=== PATIENT | male | born 1955 | race Caucasian/White ===

== ENCOUNTER 2021-08-11 06:47 | Inpatient (IN) | payer MEDICARE, MEDICAID ==
[~2021-08-11] VITALS: Ht 188 cm; Wt 105.2 kg
[~2021-08-11 06:47] MED LIST: ASPI-1444 PO; HYDR25TA2 PO; OMEP20 PO; VALP250C48 PO
[2021-08-11 07:41] LABS: GLUCOSE,POINT OF CARE 147 MG/DL (70-110)
[2021-08-11 08:18] LABS: BASOPHILS % (AUTO) 0.7 % (0.0-2.0); EOSINOPHILS % (AUTO) 2.9 % (1.0-6.0); HEMATOCRIT 31.9 % (41-53); LYMPHOCYTES # (AUTO) 1.1 K/uL (1.0-4.8); LYMPHOCYTES % (AUTO) 22.5 % (22.0-44.0); MEAN CORPUSCULAR HEMOGLOBIN 31.4 pg (26.0-34.0); MEAN CORPUSCULAR HGB CONC 34.6 G/dL (31.0-37.0); MEAN CORPUSCULAR VOLUME 91 fL (80-100); MONOCYTES # (AUTO) 0.7 K/uL (0.1-1.0); MONOCYTES % (AUTO) 13.3 % (2.0-9.0); NEUTROPHILS # (AUTO) 3.1 K/uL (1.8-7.7); NEUTROPHILS % (AUTO) 60.6 % (40.0-70.0); PLATELET COUNT (AUTO) 206 K/uL (150-450); RED BLOOD CELL COUNT(AUTO) 3.52 MIL/uL (4.50-5.90); RED CELL DISTRIBUTION WIDTH 15.1 % (11.5-14.5)
[2021-08-11 08:34] LABS: SALICYLATE 0.7 mg/dL (2.8-20.0)
[2021-08-11 08:37] LABS: COVID AG,FIA SOURCE NASOPHARYNGEAL
[2021-08-11 08:39] LABS: ALANINE AMINOTRANSFERASE 71 U/L (12-78); ALBUMIN 3.4 g/dL (3.4-5.0); ALKALINE PHOSPHATASE 52 U/L (46-116); ANION GAP 7 mmol/L (8-16); ASPARTATE AMINOTRANSFERASE 69 U/L (15-37); BILIRUBIN,TOTAL 2.1 mg/dL (0.1-1.0); CALCIUM, TOTAL 8.6 mg/dL (8.8-10.5); CARBON DIOXIDE 29 mmol/L (22-29); CHLORIDE 104 mmol/L (98-107); CREATININE 0.95 mg/dL (0.60-1.30); GLOMERULAR FILTR. RATE CALC > 60 mL/min (>60); GLUCOSE,RANDOM 152 mg/dL (70-110); SODIUM SERUM 140 mmol/L (136-145); TOTAL PROTEIN, SERUM 6.4 g/dL (6.4-8.2); UREA NITROGEN, BLOOD 23 mg/dL (7-18)
[2021-08-11 08:40] LABS: ACETAMINOPHEN < 2 mcg/mL (10-30)
[2021-08-11 09:06] LABS: APPEARANCE,URINE CLEAR (CLEAR); BILIRUBIN,URINE NEGATIVE (NEGATIVE); GLUCOSE, URINE (UA) NEGATIVE (NEGATIVE); KETONES,URINE NEGATIVE (NEGATIVE); LEUKOCYTE ESTERASE ,URINE NEGATIVE (NEGATIVE); NITRATE,URINE NEGATIVE (NEGATIVE); OCCULT BLOOD,URINE NEGATIVE (NEGATIVE); PH,URINE 5.5 (5.0-8.0); PROTEIN,URINE NEGATIVE (NEGATIVE); SPECIFIC GRAVITIY, URINE 1.025 (1.003-1.030); UROBILINOGEN,URINE <=1.0 mg/dL (<=1.0)
[2021-08-11 09:13] LABS: AMPHET/METH SCREEN,URINE POSITIVE (NEGATIVE); BARBITURATE SCREEN, URINE NEGATIVE (NEGATIVE); BENZODIAZEPINES SCREEN,URINE NEGATIVE (NEGATIVE); CANNABINOID SCREEN,URINE POSITIVE (NEGATIVE); COCAINE SCREEN,URINE NEGATIVE (NEGATIVE); METHADONE SCREEN, URINE NEGATIVE (NEGATIVE); OPIATE SCREEN,URINE NEGATIVE (NEGATIVE); PHENCYCLIDINE SCREEN,URINE NEGATIVE (NEGATIVE)
[2021-08-11 09:58] LABS: BACTERIA,URINE None Seen /HPF (None Seen); RBC,URINE None Seen /HPF (0-2); WBC,URINE None Seen /HPF (0-5)
[2021-08-11] MEDS ORDERED: ZOLPIDEM TARTRATE 10 MG TABLET PO PRN (12:00)
[2021-08-11] MEDS ORDERED: LORazepam 2 MG TABLET PO PRN (12:00)
[2021-08-11] MEDS ORDERED: HALOPERIDOL 5 MG TABLET PO PRN (12:00)
[2021-08-11] MEDS ORDERED: POTASSIUM CHLORIDE 20 MEQ ER TABLET PO ONE (17:15)
[2021-08-11 17:45] VITALS: BP 128/62
[2021-08-11] MEDS ORDERED: IBUPROFEN 400 MG TABLET PO PRN (21:00)
[2021-08-11] MEDS ORDERED: NICOTINE 14 MG/24 HOUR PATCH TD PRN (21:00)
[2021-08-12 08:00] VITALS: BP 107/69
[2021-08-12] MEDS: OLANZapine 10 MG TABLET PO SCH ×2 (12:19→21:01)
[2021-08-12] MEDS: DIVALPROEX SODIUM 500 MG DR TABLET PO SCH ×2 (12:19→21:01)
[2021-08-12] MEDS ORDERED: GuaiFENesin/D-METHORPHAN [SUGAR-FREE] 200-20MG/10 ML SYRUP UDCUP PO PRN (13:15)
[2021-08-12] MEDS ORDERED: CloNIDine HCL 0.1 MG TABLET PO PRN (13:15)
[2021-08-12] MEDS ORDERED: MAG HYDROX/AL HYDROX/SIMETH ES 30 ML SUSPENSION UDCUP PO PRN (13:15)
[2021-08-12] MEDS ORDERED: MAGNESIUM HYDROXIDE SUSPENSION 30 ML UDCUP PO PRN (13:15)
[2021-08-12] MEDS ORDERED: LOPERAMIDE HCL 2 MG CAPSULE PO PRN (13:15)
[2021-08-12] MEDS ORDERED: IBUPROFEN 400 MG TABLET PO PRN (13:15)
[2021-08-12] MEDS ORDERED: ALBUTEROL SULFATE HFA 90 MCG/PUFF 8 GM INHALER IH PRN (13:15)
[2021-08-12] MEDS ORDERED: PETROLATUM,WHITE 28 GM JELLY TP PRN (13:15)
[2021-08-12] MEDS ORDERED: DOCUSATE SODIUM 100 MG CAPSULE PO PRN (13:15)
[2021-08-12] MEDS ORDERED: NICOTINE 14 MG/24 HOUR PATCH TD PRN (13:15)
[2021-08-12] MEDS ORDERED: ACETAMINOPHEN 325 MG TABLET PO PRN (13:15)
[2021-08-12] MEDS ORDERED: ONDANSETRON HCL 4 MG TABLET PO PRN (13:15)
[2021-08-12] MEDS ORDERED: DEXTROSE 50%-WATER 25 GM/50 ML SYRINGE IVP PRN (13:15)
[2021-08-12 16:00] VITALS: BP 113/77
[2021-08-12] MEDS: INSULIN LISPRO 100 UNITS/ML SQ PRN (17:02)
[2021-08-12] MEDS: MetFORMIN HCL 500 MG TABLET PO SCH (17:05)
[2021-08-12 17:16] LABS: GLUCOMETER DEV NAME(LOC) 3EX.; GLUCOSE,POINT OF CARE 169 MG/DL (70-110)
[2021-08-12 21:21] LABS: GLUCOMETER DEV NAME(LOC) 3EX.; GLUCOSE,POINT OF CARE 104 MG/DL (70-110)
[2021-08-13] MEDS: MetFORMIN HCL 500 MG TABLET PO SCH ×2 (06:34→16:55)
[2021-08-13 07:01] LABS: GLUCOMETER DEV NAME(LOC) 3EX.; GLUCOSE,POINT OF CARE 118 MG/DL (70-110)
[2021-08-13 09:20] VITALS: BP 128/74
[2021-08-13] MEDS: DIVALPROEX SODIUM 500 MG DR TABLET PO SCH ×2 (09:21→21:20)
[2021-08-13] MEDS: HYDROCHLOROTHIAZIDE 25 MG TABLET PO SCH (09:22)
[2021-08-13] MEDS: OMEPRAZOLE 20 MG CAPSULE PO SCH (09:22)
[2021-08-13] MEDS: ASPIRIN 81 MG DR TABLET PO SCH (09:22)
[2021-08-13] MEDS: OLANZapine 10 MG TABLET PO SCH ×2 (09:22→21:20)
[2021-08-13 11:43] LABS: GLUCOMETER DEV NAME(LOC) 3EX.; GLUCOSE,POINT OF CARE 120 MG/DL (70-110)
[2021-08-13] MEDS: INSULIN LISPRO 100 UNITS/ML SQ PRN ×2 (13:13→21:23)
[2021-08-13 16:00] VITALS: BP 125/75
[2021-08-13 16:51] LABS: GLUCOMETER DEV NAME(LOC) 3EX.; GLUCOSE,POINT OF CARE 104 MG/DL (70-110)
[2021-08-13 21:15] LABS: GLUCOMETER DEV NAME(LOC) 3EX.; GLUCOSE,POINT OF CARE 143 MG/DL (70-110)
[2021-08-14 06:11] LABS: GLUCOMETER DEV NAME(LOC) 3EX.; GLUCOSE,POINT OF CARE 104 MG/DL (70-110)
[2021-08-14] MEDS: MetFORMIN HCL 500 MG TABLET PO SCH ×2 (06:37→16:43)
[2021-08-14 08:00] VITALS: BP 147/79
[2021-08-14] MEDS: ASPIRIN 81 MG DR TABLET PO SCH (09:06)
[2021-08-14] MEDS: DIVALPROEX SODIUM 500 MG DR TABLET PO SCH (09:06)
[2021-08-14] MEDS: OMEPRAZOLE 20 MG CAPSULE PO SCH (09:06)
[2021-08-14] MEDS: HYDROCHLOROTHIAZIDE 25 MG TABLET PO SCH (09:07)
[2021-08-14] MEDS: OLANZapine 10 MG TABLET PO SCH (09:07)
[2021-08-14] MEDS ORDERED: OLAN10 PO (10:15)
[2021-08-14] MEDS ORDERED: DIVA-112 PO (10:15)
[2021-08-14] MEDS ORDERED: METF-1211 PO (11:48)
[2021-08-14 11:51] LABS: GLUCOMETER DEV NAME(LOC) 3EX.; GLUCOSE,POINT OF CARE 117 MG/DL (70-110)
[2021-08-14] MEDS: INSULIN LISPRO 100 UNITS/ML SQ PRN (15:17)
[2021-08-14 16:56] LABS: GLUCOMETER DEV NAME(LOC) 3EX.; GLUCOSE,POINT OF CARE 130 MG/DL (70-110)
== END 2021-08-14 16:50 | disposition home or self-care (01) | DRG 885 ==
LOC: EMS 06:49 → 3EI 11:56
PROVIDERS: ADMIT Psychiatry & Neurology Child & Adolescent Psychiatry; ATTEND Psychiatry & Neurology Child & Adolescent Psychiatry
DX: F25.1 Schizoaffective disorder, depressive type (principal); R45.851 Suicidal ideations; E11.9 Type 2 diabetes mellitus without complications; Z20.822 Contact with and (suspected) exposure to COVID-19; E78.5 Hyperlipidemia, unspecified; E87.6 Hypokalemia; F12.10 Cannabis abuse, uncomplicated; F15.90 Other stimulant use, unspecified, uncomplicated; I10 Essential (primary) hypertension; F17.210 Nicotine dependence, cigarettes, uncomplicated; K21.9 Gastro-esophageal reflux disease without esophagitis; Z59.00 Homelessness unspecified
CPT/HCPCS: 80053; 81001; 82962; 85025; 93005; 99285; G0480; G0481